=== PATIENT | female | born 2000 | race Two or more races ===

== ENCOUNTER 2019-02-25 22:29 | Emergency (ER) | payer OTHER ==
[~2019-02-25] VITALS: Ht 160 cm; Wt 72.6 kg
[2019-02-25] MEDS ORDERED: IV NORMAL SALINE 1000 ML BAG IV ONE (23:30)
[2019-02-26] LABS: BASOPHILS # (AUTO) 0.1 K/uL (0.0-8.0); BASOPHILS % (AUTO) 0.6 % (0.0-2.0); EOSINOPHILS # (AUTO) 0.1 K/uL (0.0-0.7); EOSINOPHILS % (AUTO) 0.5 % (0.0-7.0); HEMATOCRIT 43.3 % (31.2-41.9); HEMOGLOBIN 14.4 g/dL (10.9-14.3); LYMPHOCYTES # (AUTO) 2.3 K/uL (20.0-40.0); LYMPHOCYTES % (AUTO) 15.1 % (20.5-74.5); MEAN CORPUSCULAR HEMOGLOBIN 29.8 uug (24.7-32.8); MEAN CORPUSCULAR HGB CONC 33 g/dL (32.3-35.6); MEAN CORPUSCULAR VOLUME 89.5 fL (75.5-95.3); MONOCYTES # (AUTO) 0.8 K/uL (2.0-10.0); MONOCYTES % (AUTO) 5.5 % (0-11); NEUTROPHILS # (AUTO) 11.8 K/uL (1.8-8.9); NEUTROPHILS % (AUTO) 78.3 % (31.5-64.5); PLATELET COUNT (AUTO) 236 K/uL (179-408); RED BLOOD CELL COUNT(AUTO) 4.84 MIL/uL (3.63-4.92); WHITE BLOOD COUNT (AUTO) 15.1 K/uL (3.8-11.8)
[2019-02-26 00:06] LABS: *BILIRUBIN,URIN 1+ (NEGATIVE); *BLOOD, URINE NEGATIVE (NEGATIVE); *CLARITY,URINE CLEAR (CLEAR); *COLOR,URINE YELLOW (YELLOW); *KETONES,URINE 4+ (NEGATIVE); *UROBILINOGEN,URINE 0.2 E.U./dl (NORMAL); LEUKOCYTE ESTERASE ,URINE NEGATIVE (NEGATIVE); NITRITE, URINE NEGATIVE (NEGATIVE); UGLUCOSE NEGATIVE (NEGATIVE)
[2019-02-26 00:09] LABS: CREATININE 0.6 mg/dL (0.6-1.3); POTASSIUM 3.8 mmol/L (3.5-5.1)
[2019-02-26 00:13] LABS: BACTERIA,URINE NONE SEEN /HPF (NONE SEEN); RBC,URINE NONE SEEN /HPF (0-3); SQUAMOUS EPITHELIAL CELL,UR FEW /HPF (NONE SEEN); WBC,URINE 0-3 /HPF (0-3)
[2019-02-26 00:14] LABS: MUCUS,URINE FEW /LPF (0-FEW)
[2019-02-26 00:15] LABS: BILIRUBIN,DIRECT 0.1 mg/dL (0.0-0.2); BILIRUBIN,TOTAL 0.8 mg/dL (0.2-1.0); TOTAL PROTEIN, SERUM 7.9 g/dL (6.4-8.2)
--- NOTE | 2019-02-26 02:00 | NUR ---
PATIENT IN ROOM WITH NO DISTRESS,INTERACTING WITH FAMILY MEMBER
--- NOTE | 2019-02-26 02:55 | NUR ---
PATIENT REQUESTING TO GO AMA. STATING "I DON'T WANT TO WAIT FOR MY US RESULT."
--- NOTE | 2019-02-26 02:57 | NUR ---
Patient does not wish to proceed with medical care recommended by ( [facility] ). Patient given information related to possible complications, up to and including , which could occur as a result of leaving the hospital at this time. Patient verbalizes understanding of risks involved due to leaving against medical advice. Patient has signed AMA form.
[2019-02-26 03:03] VITALS: BP 128/79
== END 2019-02-26 03:03 | disposition home or self-care (01) ==
LOC: ER 22:33
DX: N93.9 Abnormal uterine and vaginal bleeding, unspecified (principal); F17.200 Nicotine dependence, unspecified, uncomplicated
CPT/HCPCS: 36415; 76856; 83690; 85025; A4663